=== PATIENT | male | born 1965 | race African-American/Black ===

== ENCOUNTER 2016-12-03 14:36 | Emergency (ER) | payer BC, OTHER ==
[~2016-12-03] VITALS: Ht 177.8 cm; Wt 83.5 kg
[2016-12-03 14:41] VITALS: Ht 177.8 cm; Wt 83.5 kg
[2016-12-03] MEDS ORDERED: CEFTRIAXONE 250 MG INJ IM ONE (16:30)
[2016-12-03] MEDS ORDERED: AZITHROMYCIN 250 MG TAB PO ONE (16:30)
--- NOTE | 2016-12-03 16:57 | ERD ---
ER Documentation Chief Complaint Date/Time DATE: 12/03/16 TIME: 16:54 Chief Complaint dysuria x 2 weeks HPI This is a 51-year-old male presenting to the emergency department for slight irritation with urination after patient states he used a condom with oral sex. Patient states "I have very mild irritation when I pee." Denies burning sensation when urinating. Denies itching or rash in genital area. No penile discharge. No testicular pain or swelling. Sexual intercourse however did not use any protection with oral sex. Patient denies abdominal pain, nausea, vomiting, diarrhea or constipation. No back or flank pain. No difficulty urinating or urinary incontinence. Patient states he is concerned about an STD. Patient states he would like to be treated prophylactically for gonorrhea and chlamydia. ROS All systems reviewed and are negative except as per history of present illness. PMhx/Soc Medical and Surgical Hx: pt denies Medical Hx, pt denies Surgical Hx Physical Exam Vitals Vital Signs Date Time Temp Pulse Resp B/P Pulse Ox O2 Delivery O2 Flow Rate FiO2 12/03/16 14:41 97.8 68 18 138/90 100 Physical Exam Const: No acute distress, alert Head: Atraumatic Eyes: Normal Conjunctiva ENT: Normal External Ears, Nose and Mouth. Neck: Full range of motion..~ No meningismus. Resp: Clear to auscultation bilaterally Cardio: Regular rate and rhythm, no murmurs Abd: Soft, non tender, non distended. Normal bowel sounds Skin: No petechiae or rashes Back: No midline or flank tenderness Ext: No cyanosis, or edema Neur: Awake and alert Psych: Normal Mood and Affect Results 24 hrs Laboratory Tests Test 12/03/16 16:50 Urine Color YELLOW Urine Clarity CLEAR Urine pH 6.0 Urine Specific Sims 1.019 Urine Ketones NEGATIVEmg/dL Urine Nitrite NEGATIVEmg/dL Urine Bilirubin NEGATIVEmg/dL Urine Urobilinogen NEGATIVEmg/dL Urine Leukocyte Esterase NEGATIVELeu/ul Urine Hemoglobin NEGATIVEmg/dL Urine Glucose NEGATIVEmg/dL Urine Total Protein NEGATIVEmg/dl Current Medications Medications (Trade) Dose Ordered Sig/Daisy Route PRN Reason Start Time Stop Time Status Last Admin Dose Admin Ceftriaxone Sodium (Rocephin) 250 mg ONCE ONCE IM 12/03/16 16:30 12/03/16 16:31 DC 12/03/16 16:47 Azithromycin (Zithromax) 1,000 mg ONCE ONCE PO 12/03/16 16:30 12/03/16 16:31 DC 12/03/16 16:48 Procedures/MDM MDM: This is a 51-year-old male presenting to emerge department for irritation with urinating after unprotected oral sex 2 weeks ago. Patient denies dysuria, hematuria, urinary frequency or urgency. No active vomiting on ED. Patient states he would like to be treated prophylactically for gonorrhea and chlamydia. UA shows . Urine culture results are pending. Gonorrhea and Chlamydia results are pending. Patient given Rocephin 250 mg IM and azithromycin 1 g p.o. while in the ED. Diagnosis includes but not limited to UTI, gonorrhea, chlamydia, herpes simplex virus, yeast infection and dysuria not otherwise specified. Low suspicion for pyelonephritis or sepsis. Patient is appropriate for outpatient management . Patient to follow-up with primary care provider in the next 2-3 days for reassessment and additional management. Return to ED for any high fever, chest pain, difficulty breathing, shortness breath, wheezing, vomiting, diarrhea, abdominal pain or any new or worsening symptoms. Patient verbalizes understanding. All questions answered at discharge. Disclaimer: Inadvertent spelling and grammatical errors are likely due to EHR/ dictation software use and do not reflect on the overall quality of patient care. Also, please note that the electronic time recorded on this note does not necessarily reflect the actual time of the patient encounter. Departure Diagnosis: Primary Impression: Dysuria Condition: Stable BRODIE HOLT NP Dec 03, 2016 16:57
[2016-12-03 17:11] LABS: ADD UMIC NO; UR ASCORBIC ACID NEGATIVE (NEGATIVE); UR BILIRUBIN (Dip) NEGATIVE (NEGATIVE); UR BLOOD (Dip) NEGATIVE (NEGATIVE); UR CLARITY CLEAR (CLEAR); UR COLOR YELLOW (YELLOW); UR GLUCOSE (Dip) NEGATIVE (NEGATIVE); UR KETONES (Dip) NEGATIVE (NEGATIVE); UR LEUKOCYTE ESTERASE (Dip) NEGATIVE Leu/ul (NEGATIVE); UR NITRITE (Dip) NEGATIVE (NEGATIVE); UR SPECIFIC GRAVITY (Dip) 1.019 (1.003-1.030); UR TOTAL PROTEIN (Dip) NEGATIVE (NEGATIVE); UR UROBILINOGEN (Dip) NEGATIVE (NEGATIVE)
== END 2016-12-03 17:31 | disposition home or self-care (01) ==
LOC: FTE 14:36
DX: R30.0 Dysuria (principal)
CPT/HCPCS: 81003; 87070; 87086; 96372; 99284; J0696

== ENCOUNTER 2017-12-22 00:43 | Emergency (ER) | END 2017-12-22 02:26 | disposition home or self-care (01) ==